=== PATIENT | female | born 1970 | race Caucasian/White ===

== ENCOUNTER 2018-11-14 11:31 | Emergency (ER) | payer BC ==
[2018-11-14 11:43] VITALS: BMI 27.3
[2018-11-14] MEDS ORDERED: ACETAMINOPHEN 325 MG TABLET (FP) PO ONE (11:50)
[2018-11-14] MEDS ORDERED: SODIUM CHLORIDE 1,000 ML IV STA (11:50)
--- NOTE | 2018-11-14 11:50 | PDOC ---
History of Present Illness - General Chief Complaint: Pain Stated Complaint: LEFT SIDE PAIN 4 DAYS Time Seen by Provider: 11/14/18 11:34 History Source: Patient, Family Exam Limitations: No Limitations - History of Present Illness Initial Comments: 11/14/18 11:51 48 YOF with h/o colon ca s/p resection, presenting with left sided back/ flank and lower abdominal pain x 3-4 days. Pain described as constant aching, nonradiating, without exacerbating factors. pain improved with NSAID, which she last took at 4am, with relief. admits to constipation, last BM was 4 days ago. +flatus. Denies fever, chills, chest pain, SOB, palpitation, dizziness, weakness, N, V, D , bladder and bowel problems, leg swelling, No sick contacts or travel. No new changes in medications. No suspicious food intake. no trauma or heavy lifting. PSH: appendectomy, cholecystectomy, colon resection, RICHY/BSO. Social: smoker. no etoh or illicit drug use. Meds: imodium PRN Past History - Past Medical History Allergies/Adverse Reactions: Allergies Allergy/AdvReac Type Severity Reaction Status Date / Time No Known Allergies Allergy Verified 11/14/18 11:33 Home Medications: Ambulatory Orders Cyclobenzaprine HCl [Flexeril 10 mg] 10 mg PO TID PRN #15 tablet 11/14/18 Cancer: Yes (colorectal ca) COPD: No - Surgical History Cholecystectomy: Yes GI Surgery: Yes (resection, illostomy wtih reversal) - Immunization History Immunization Up to Date: Yes - Suicide/Smoking/Psychosocial Hx Smoking History: Current every day smoker Have you smoked in the past 12 months: No Number of Cigarettes Smoked Daily: 15 Information on smoking cessation initiated: Yes Hx Alcohol Use: No Drug/Substance Use Hx: No Substance Use Type: None Review of Systems - Review of Systems Able to Perform ROS?: Yes Comments:: 11/14/18 11:53 Constitutional: no fevers or chills. HEENT: no headache or dizziness. No congestion. No visual/hearing disturbances. CVS: no cp or syncope. Resp: no sob. No cough. Gastrointestinal: +abdominal pain, +flank pain. +constipation. No nausea or vomiting or diarrhea. Genitourinary: no urinary sx, hematuria. no urgency or frequency or dysuria. MUSCULOSKELETAL: +back pain. No joint pain and swelling. No neck pain. SKIN: no redness or skin changes, no discharge, no rash. No wounds. Hematologic: no easy bruising/bleeding. NEUROLOGIC: No headache, dizziness, LOC or altered mental status. No weakness, numbness or tingling. Psych: no anxiety or depression Allergic/Immunologic: no allergies All other systems reviewed and negative, or as documented in HPI. *Physical Exam - Vital Signs Last Vital Signs Temp Pulse Resp BP Pulse Ox 97.6 F 70 16 136/84 100 11/14/18 11:32 11/14/18 11:32 11/14/18 11:32 11/14/18 11:32 11/14/18 11:32 - Physical Exam Comments: 11/14/18 11:54 General: Well appearing, awake and alert, NAD. HEENT: NCAT, PERRL, EOMI, clear conjunctiva, anicteric, moist mucus membranes, clear oropharynx, no oral lesions.. Neck: neck supple, FROM Resp: CTAB, normal and even respirations, no respiratory distress CVS: RRR, no murmurs, 2+ peripheral pulses throughout, no peripheral edema Abdomen: soft, nondistended, anterior abdominal scars. +LLQ TTP on deep palpation. no CVAT. Back: nontender, normal inspection and ROM, no midlilne spinal tenderness. MSK: no edema, CEDILLO x4, ROM intact. No clubbing or cyanosis. normal bulk and tone. Neuro: alert, no focal neuro deficits. Psych: calm and cooperative Skin: warm and well perfused, cap refill <2 sec, normal color ED Treatment Course - LABORATORY CBC & Chemistry Diagram: 11/14/18 12:00 11/14/18 12:00 Medical Decision Making - Medical Decision Making 11/14/18 11:54 Vital Signs Temp Pulse Resp BP Pulse Ox 97.6 F 70 16 136/84 100 11/14/18 11:32 11/14/18 11:32 11/14/18 11:32 11/14/18 11:32 11/14/18 11:32 hpi as documented VS as above, wnl. nontoxic, NAD DDx abdominal pain: Renal colic, biliary colic, metabolic/electrolyte derangements. GERD, PUD, esophageal spasm, pancreatitis, hepatitis, constipation , colitis, gastroenteritis, cholecystitis, UTI, pyelonephritis, ileus, SBO, medication side effect, hernia, appendicitis, diverticulitis, mesenteric ischemia. msk strain, mesenteric adenitis, psoas abscess. ED course: - labs and lytes normal, reassuring - UA small blood, no s/s infection - given analgesia, IVF, reassess - CT a/p to eval for intra abdominal infection/inflammation, diverticulitis, atypical renal colic/stone 11/14/18 14:58 - after contrast study, now with pruritis. will give benadryl with IVF. no e/o anaphylaxis or hives or respiratory distress. CT a/p_post surgical changes; metastatic artifacts in liver, similar - needs followup prior lymph node dissection. presacral space thickening, similarly noted. stool in colon. no obstruction or areas of abscess/infection/inflammation discussed these results and compared to prior in 2018 - pt will need [place] [facility] [place]/artifacts, of unclear etiology. with her lower back pain, could be muscular/strain, will rx flexeril prn for spasms. can c/w otc analgesia for pain control, rest and phys activity as tolerated. Has PMD follow up scheduled for tomorrow. Pt to be discharged in stable condition. Patient and family made aware of clinical impression, treatment recommendations and disposition plan, return precautions discussed (including but not limited to new or persistent/worsening symptoms, pain, fevers, or signs of infection, chest pain, respiratory distress , inability to tolerate oral intake, dehydration, syncope, or neurologic changes ). Follow up with PMD Dr Hough and/or clinical education specialist as recommended, follow up information provided, take medications as instructed for duration of time. continue with supportive care, avoid triggers and precipitants. All questions answered to patient's satisfaction and expressed understanding and comfort with this. At the time of discharge, the patient is alert, clinically improved, tolerating po and verbalizes understanding of instructions, satisfied with the care received and felt comfortable with the plan. Patient does not suffer from an acute life-threatening medical condition at this time and is safe for outpatient follow-up. 11/14/18 15:41 11/14/18 15:52 11/14/18 15:55 *DC/Admit/Observation/Transfer Diagnosis at time of Disposition: Abdominal pain Qualifiers: Abdominal location: unspecified location Qualified Code(s): R10.9 - Unspecified abdominal pain Back pain Qualifiers: Back pain location: back pain in unspecified location Chronicity: unspecified Back pain laterality: unspecified Qualified Code(s): M54.9 - Dorsalgia, unspecified - Discharge Dispostion Disposition: HOME Condition at time of disposition: Stable Decision to Admit order: No - Prescriptions Prescriptions: Cyclobenzaprine HCl [Flexeril 10 mg] 10 mg PO TID PRN #15 tablet PRN Reason: Muscle Spasms - Referrals Referrals: Iftikhar Hough MD [Primary Care Provider] - - Patient Instructions Printed Discharge Instructions: DI for Low Back Pain, DI for Abdominal Pain- Adult Additional Instructions: 1) Please follow-up with your primary care doctor in the next 1-2 days. Please call tomorrow for for any urgent issues. 2) You were given a copy of the tests performed today. Please bring the results with you and review them with your primary care doctor. Your laboratory / imaging results were remarkable for normal labs, the CT did show post surgical changes as well as ?metastatic liver lesions versus artifacts. this needs to be followed up with Dr Hough and possibly your prior oncologist. 3) If you have any worsening of symptoms or any other concerns please return to the ED immediately. Return if worsening symptoms including fevers, headache, vomiting, visual or hearing disturbances, abdominal pain, chest pain, shortness of breath, syncope, dehydration, inability to take things by mouth/vomiting, altered mental status, or worsening concerning symptoms. 4) Please continue taking your home medications as directed. your medications on discharge include flexeril three times a day as needed . side effects may include upset stomach, abdominal pain, vomiting, or diarrhea. do not drink alcohol with your medications. this can cause drowsiness and sleepiness, so avoid driving or operating machinery under this medication. Stay well hydrated and rest adequately. Make an appointment and see your doctor as scheduled for tomorrow. If you cannot follow-up with your primary care doctor please return to the ED - Post Discharge Activity
[2018-11-14] MEDS ORDERED: ACETAMINOPHEN 325 MG TABLET (FP) ONE (12:02)
[2018-11-14 12:57] LABS: BASO % 1.5 % (0-2.0); EOS % 3.7 % (0-4.5); HEMATOCRIT 38.6 % (32.4-45.2); HEMOGLOBIN 12.8 GM/dl (10.7-15.3); LYMPH % 35.8 % (8-40); MCH 26.7 pg (25.7-33.7); MCHC 33.2 g/dl (32.0-36.0); MEAN CELL VOLUME 80.4 fl (80-96); MEAN PLT VOLUME 7.4 fl (7.5-11.1); MONO % 4.7 % (3.8-10.2); NEUT % 54.3 % (42.8-82.8); PLATELET COUNT 476 K/MM3 (134-434); RDW 15.7 % (11.6-15.6); WHITE BLOOD COUNT 7.3 K/mm3 (4.0-10.8)
[2018-11-14 13:04] LABS: ALBUMIN 3.8 g/dl (3.4-5.0); BILIRUBIN,TOTAL 0.5 mg/dl (0.2-1); CALCIUM 9.1 mg/dl (8.5-10); CREATININE 0.9 mg/dl (0.55-1.3); POTASSIUM 4.6 mmol/L (3.5-5.1); TOT PROT 8.5 g/dl (6.4-8.2)
[2018-11-14 13:11] LABS: EPITHELIAL CELLS FEW /hpf
[2018-11-14] MEDS ORDERED: SODIUM CHLORIDE 0.9% 500 ML INFUS.BAG IV ONE (14:58)
[2018-11-14 15:20] VITALS: BP 112/72; PULSE 65; TEMP 97.5
== END 2018-11-14 16:08 | disposition home or self-care (01) ==
LOC: FER 11:31
PROC: 3E0337Z Introduction of Electrolytic and Water Balance Substance into Peripheral Vein, Percutaneous Approach (ICD-10-PCS; principal; 2018-11-14)
PROC: 3E033GC Introduction of Other Therapeutic Substance into Peripheral Vein, Percutaneous Approach (ICD-10-PCS; 2018-11-14)
DX: R10.9 Unspecified abdominal pain (principal); M54.9 Dorsalgia, unspecified
CPT/HCPCS: 36415; 74177-TC; 80053; 81003; 81015; 85025; 87086; 99284-25; J7030

== ENCOUNTER 2020-09-15 04:46 | Day surgery (SDC) | payer BC ==
[2020-09-13 16:43] VITALS: BMI 27.5
[2020-09-15 11:05] VITALS: TEMP 97.1
[2020-09-15 11:46] VITALS: BP 115/73; PULSE 68
== END 2020-09-15 12:05 | disposition home or self-care (01) ==
LOC: JASU-ENDO 04:46 → EDSTATUS 10:30 → JASU-ENDO 12:05
PROVIDERS: ATTEND Internal Medicine Gastroenterology
PROC: 0DBP8ZX Excision of Rectum, Via Natural or Artificial Opening Endoscopic, Diagnostic (ICD-10-PCS; 2020-09-15)
PROC: 0DB98ZX Excision of Duodenum, Via Natural or Artificial Opening Endoscopic, Diagnostic (ICD-10-PCS; 2020-09-15)
PROC: 0DB78ZX Excision of Stomach, Pylorus, Via Natural or Artificial Opening Endoscopic, Diagnostic (ICD-10-PCS; 2020-09-15)
PROC: 0DBL8ZX Excision of Transverse Colon, Via Natural or Artificial Opening Endoscopic, Diagnostic (ICD-10-PCS; principal; 2020-09-15 10:30)
DX: Z12.11 Encounter for screening for malignant neoplasm of colon (principal); D12.3 Benign neoplasm of transverse colon; Z85.038 Personal history of other malignant neoplasm of large intestine; Z98.0 Intestinal bypass and anastomosis status; R10.13 Epigastric pain; K29.50 Unspecified chronic gastritis without bleeding; K21.9 Gastro-esophageal reflux disease without esophagitis
CPT/HCPCS: 88305-TC

== ENCOUNTER 2022-03-20 13:58 | Emergency (ER) | payer BC ==
[2022-03-20 14:57] VITALS: BMI 25.6
[2022-03-20] MEDS ORDERED: MAG HYDROX/AL HYDROX/SIMETH 30 ML UNIT-DOSE CUP PO ONE (17:54)
[2022-03-20] MEDS ORDERED: SODIUM CHLORIDE 1,000 ML IV STA (17:54)
[2022-03-20] MEDS ORDERED: ONDANSETRON 4 MG/2 ML VIAL IVPUSH ONE (17:54)
[2022-03-20] MEDS ORDERED: FAMOTIDINE 20 MG/50 ML IVPB 20 MG/50 ML MG IVPB ONE ×2 (17:54→20:05)
[2022-03-20] MEDS ORDERED: MAG HYDROX/AL HYDROX/SIMETH 30 ML UNIT-DOSE CUP ONE (20:04)
[2022-03-20] MEDS ORDERED: ONDANSETRON 4 MG/2 ML VIAL ONE (20:04)
[2022-03-20 20:23] LABS: BASO % 1.2 % (0-2.0); EOS % 2.6 % (0-4.5); HEMATOCRIT 39.4 % (32.4-45.2); HEMOGLOBIN 12.9 GM/dL (10.7-15.3); LYMPH % 31.5 % (8-40); MCH 26.7 pg (25.7-33.7); MCHC 32.6 g/dl (32.0-36.0); MEAN CELL VOLUME 81.8 fl (80-96); NEUT % 57.7 % (42.8-82.8); PLATELET COUNT 409 10^3/uL (134-434); RBC 4.82 M/mm3 (3.60-5.2); RDW 14.9 % (11.6-15.6); WHITE BLOOD COUNT 9.2 K/mm3 (4.0-10.0)
[2022-03-20 20:38] LABS: CALCIUM 9.3 mg/dL (8.5-10.1)
[2022-03-20 20:39] LABS: ALBUMIN 3.3 g/dl (3.4-5.0); BLOOD UREA NITROGEN 14.6 mg/dL (7-18)
[2022-03-20 20:41] LABS: CREATININE 0.8 mg/dL (0.55-1.3)
[2022-03-20 20:43] LABS: BILIRUBIN,TOTAL 0.5 mg/dL (0.2-1); TOT PROT 7.7 g/dl (6.4-8.2)
[2022-03-21 00:15] VITALS: BP 132/75; PULSE 76; RESP 18; TEMP 98
== END 2022-03-21 00:15 | disposition home or self-care (01) ==
LOC: JER 13:58
PROC: 3E033GC Introduction of Other Therapeutic Substance into Peripheral Vein, Percutaneous Approach (ICD-10-PCS; principal; 2022-03-20)
PROC: 3E033GC Introduction of Other Therapeutic Substance into Peripheral Vein, Percutaneous Approach (ICD-10-PCS; 2022-03-20)
PROC: 3E033GC Introduction of Other Therapeutic Substance into Peripheral Vein, Percutaneous Approach (ICD-10-PCS; 2022-03-20)
PROC: 3E0337Z Introduction of Electrolytic and Water Balance Substance into Peripheral Vein, Percutaneous Approach (ICD-10-PCS; 2022-03-20)
DX: K52.9 Noninfective gastroenteritis and colitis, unspecified (principal); R10.13 Epigastric pain; R11.2 Nausea with vomiting, unspecified; R19.7 Diarrhea, unspecified
CPT/HCPCS: 0241U-QW; 36415; 74177-TC; 80053; 83605; 83690; 84484; 85025; 93005; 93010; 99285-25

== ENCOUNTER 2023-09-21 04:23 | Day surgery (SDC) | payer BC ==
[2023-09-19 10:22] VITALS: BMI 25.6
[2023-09-21 09:37] VITALS: TEMP 97.6
[2023-09-21 10:10] VITALS: BP 113/68; PULSE 69; RESP 16
== END 2023-09-21 10:20 | disposition home or self-care (01) ==
LOC: JASU-ENDO 04:23
PROVIDERS: ATTEND Internal Medicine Gastroenterology
PROC: 0DBN8ZX Excision of Sigmoid Colon, Via Natural or Artificial Opening Endoscopic, Diagnostic (ICD-10-PCS; 2023-09-21)
PROC: 0DBM8ZX Excision of Descending Colon, Via Natural or Artificial Opening Endoscopic, Diagnostic (ICD-10-PCS; 2023-09-21)
PROC: 0DBP8ZX Excision of Rectum, Via Natural or Artificial Opening Endoscopic, Diagnostic (ICD-10-PCS; 2023-09-21)
PROC: 0DBH8ZX Excision of Cecum, Via Natural or Artificial Opening Endoscopic, Diagnostic (ICD-10-PCS; principal; 2023-09-21 09:00)
DX: Z12.11 Encounter for screening for malignant neoplasm of colon (principal); D12.0 Benign neoplasm of cecum; D12.4 Benign neoplasm of descending colon; D12.5 Benign neoplasm of sigmoid colon; K64.4 Residual hemorrhoidal skin tags; Z85.038 Personal history of other malignant neoplasm of large intestine; Z86.010 Personal history of colon polyps; Z98.0 Intestinal bypass and anastomosis status
CPT/HCPCS: 88305-TC